=== PATIENT | male | born 1955 | race Caucasian/White ===

== ENCOUNTER 2017-11-16 05:04 | Day surgery (SDC) | payer OTHER ==
[2017-11-09 08:32] VITALS: Ht 172.7 cm; Wt 82.6 kg
--- NOTE | 2017-11-09 08:35 | PAT Medication Instructions ---
Service Date Nov 09, 2017. Current Home Medication List Calcium/Vitamin D (Os-Aime 500 Plus D), 1 TAB PO QDL Cyanocobalamin (Vitamin B-12), 1,000 MCG INJ WK Tamsulosin Hcl (Flomax), 0.4 MG PO HS Medication Instructions For Your Scheduled Surgery -Continue as directed: Cyanocobalamin (Vitamin B-12), 1,000 MCG INJ WK - Take the following medications as scheduled the night before surgery: Tamsulosin Hcl (Flomax), 0.4 MG PO HS Calcium/Vitamin D (Os-Aime 500 Plus D), 1 TAB PO QDL If you have any questions please call us at [phone] or [phone] or [phone]
--- NOTE | 2017-11-09 10:18 | DIAGNOSTIC IMAGING REPORT ---
CHEST 2 VIEWS ROUTINE HISTORY: Preop. COMPARISON: Outside hospital chest CT 10/19/2017. FINDINGS: Mild peripheral interstitial thickening. This remains unchanged. Eventration of the right hemidiaphragm. The heart is normal in size. No new focal lung consolidations. No pleural effusions. No pneumothorax. IMPRESSION: Peripheral interstitial thickening which is likely chronic. This is consistent with pulmonary fibrosis. No acute process within the chest. Electronically signed by: Julio Lawler M.D. 11/09/2017 10:16 AM Dictated Date/Time: 11/09/2017 10:12 AM
[2017-11-09 11:14] LABS: BASO % 0.3 %; BASO ABS # 0.01 K/uL (0-0.2); EOS % 0.7 %; EOS ABS # 0.02 K/uL (0-0.5); HEMATOCRIT 31.7 % (42-52); HEMOGLOBIN 10.5 g/dL (14.0-18.0); IG# 0.01 K/uL (0.00-0.02); LYMPH % 21.6 %; LYMPH ABS # 0.63 K/uL (1.2-3.4); MEAN CELL VOLUME 94.6 fL (80-100); MEAN CORPUSCULAR HEMOGLOBIN 31.3 pg (25-34); MEAN CORPUSCULAR HGB CONC 33.1 g/dl (32-36); MEAN PLATELET VOLUME 9.5 fL (7.4-10.4); MONO % 10.3 %; NEUT % 66.8 %; NEUT ABS # 1.94 K/uL (1.4-6.5); PLATELET COUNT 164 K/uL (130-400); RED CELL DISTRIBUTION WIDTH CV 14.6 % (11.5-14.5); RED CELL DISTRIBUTION WIDTH SD 50.3 fL (36.4-46.3); WHITE BLOOD COUNT 2.91 K/uL (4.8-10.8)
[2017-11-09 11:31] LABS: CALCIUM 8.5 mg/dl (8.5-10.1); CREATININE 0.79 mg/dl (0.60-1.40); POTASSIUM 4.5 mmol/L (3.5-5.1)
[~2017-11-16] VITALS: Ht 172.7 cm; Wt 82.6 kg
[~2017-11-16 05:04] MED LIST: CALC500C70 PO; CYAN10005 INJ; TAMS0.4C38 PO
[2017-11-16 05:45] VITALS: BP 101/48; PULSE 72; TEMP 36.7; O2SAT 98
[2017-11-16] MEDS ORDERED: LACTATED RINGER'S 1000ML 1,000 ML IV SCH (06:00)
[2017-11-16] MEDS ORDERED: CIPROFLOXACIN / D5W 400 MG IV SCH (06:00)
[2017-11-16] MEDS ORDERED: FENTANYL CITRATE INJ 50 MCG/1 ML 2 ML VIAL ONE (06:50)
[2017-11-16] MEDS ORDERED: MIDAZOLAM HCL 1 MG/ML 2ML VIAL ONE ×2 (06:50)
[2017-11-16] MEDS ORDERED: Cysto-Conray II 17.2% 250ML BOTTLE ONE (06:58)
--- NOTE | 2017-11-16 06:58 | History & Physical Bridge Note ---
H&P Re-Evaluation Bridge Note: I have examined the patient, reviewed the History & Physical and in the interval since the performance of the History & Physical I have noted the following changes of clinical significance: No changes noted
[2017-11-16] MEDS ORDERED: PROPOFOL IV EMULSION 10 MG/ML 20 ML VIAL IV ONE (07:41)
[2017-11-16] MEDS ORDERED: EpHEDrine SULFATE 50MG/5ML SYR ONE (07:42)
[2017-11-16] MEDS ORDERED: BELLADONNA/OPIUM SUPP 60 MG SUPP PR ONE ×2 (07:51→07:56)
[2017-11-16] MEDS ORDERED: ONDANSETRON INJ 2 MG/ML 2 ML VIAL IV PRN (08:00)
[2017-11-16] MEDS ORDERED: ATROPINE SULFATE 0.1 MG/ML 5ML SYR IV PRN (08:00)
[2017-11-16] MEDS ORDERED: FENTANYL CITRATE INJ 50 MCG/1 ML 2 ML VIAL IV PRN (08:00)
[2017-11-16] MEDS ORDERED: EpHEDrine SULFATE INJ 50 MG/ML AMP IV PRN (08:00)
--- NOTE | 2017-11-16 08:00 | [facility] Operative Report ---
Operative Report Operative Date Nov 16, 2017. Pre-Operative Diagnosis Bilateral Hydronephrosis Post-Operative Diagnosis Bilateral Hydronephrosis, Retroperitoneal Obstruction, Ureteral Stricture Disease. Procedure(s) Performed Cystoscopy, Optical Internal Urethotomy, Bilateral Retrograde Pyelography, Fulguration of Urethral Bleeders, Bilateral Ureteral Stent Insertion Surgeon Dr. Priyank Ellsworth Roller Operator Surgeon(s) None per surgeon Estimated Blood Loss 5ml Findings Urethral stricture disease in the proximal urethra, bilateral hydronephrosis with a transition point approximately 4 cm above the bladder assistant corporate controller with retroperitoneal scarring. Bilateral significant hydronephrosis. Specimens None per surgeon Drains Right-sided 6 Mexican 26 cm loop stent, left-sided 6 Mexican 24 cm loop stent Anesthesia Type General Complication(s) none Disposition no Recovery Room / PACU Indications Patient is a 62-year-old male with a complex medical history including colon cancer status post colectomy and radiation found to have bilateral hydronephrosis on screening CT scan for his disease. He is here today for decompression of his kidneys with stent placement. He notes chronic voiding symptoms which were unimproved by Flomax. Please see H&P for further details. Intravenous ciprofloxacin was provided for antibiotic coverage and SCDs used for DVT prophylaxis. He notes he is pending upcoming PET scan soon with his primary service. Description of Procedure Patient was properly identified and brought into the operative suite after identification for proper consent the chart. General anesthesia with laryngeal mask was initiated and patient was prepped and draped in the standard fashion for this procedure. Full timeout procedure was followed. Attempts at passing a 22 Mexican rigid cystoscope into the bladder met with resistance at the bulbar urethra due to circumferential stricture disease. Urethrotome was passed using a half-miller blade the stricture was incised at the 12 o'clock position. This allowed for passage of the 22 Mexican rigid cystoscope without resistance. Within the bladder radiation changes were appreciated. No abnormal mucosa or evidence of tumor was noted. No biopsies were felt to be necessary. Ureteral orifices were dressed using open-ended 5 Mexican Pollack catheter and retrograde pyelography was performed. This demonstrated a decompressed distal ureter on both sides with a transition point approximately 4 cm above the bladder consistent with the previous findings of obstruction at the prior surgery site on the patient's CT scan. Sensor tip wire was able to be advanced past this level on both sides followed by a 6 Mexican 26 cm loop stent on the right-hand side and a 6 Mexican 24 cm loop stent on the left-hand side with excellent coil within the renal pelvis and redundant loop present within the bladder. Hydronephrotic drip was appreciated on both sides. On removal of the cystoscope some bleeding from several urethral vessels were appreciated at the site of the ureterotomy. Pinpoint Bugbee cautery was used to ablate these vessels to avoid excess postoperative hematuria. Cystoscope was removed and bladder was left partially distended. 20 Mexican silicone catheter was placed with return of clear yellow urine and 10 cc of sterile water in the balloon. Catheter was placed to gravity drainage and anesthesia was reversed. Patient was transferred to the recovery room in stable condition. Follow-up instructions: Patient will be discharged home with a prescription for ciprofloxacin and Pyridium. Will arrange for outpatient trial of void. Follow- up appointment as scheduled. Patient is to contact our service should he note any fevers, chills, nausea, vomiting or other difficulties in the postoperative period. I attest to the content of the Intraoperative Record and any orders documented therein. Any exceptions are noted below.
[2017-11-16] MEDS ORDERED: CIPR-255 PO (08:14)
[2017-11-16] MEDS ORDERED: PHEN-775 PO (08:14)
[2017-11-16] MEDS ORDERED: OXYC-57 PO (08:14)
--- NOTE | 2017-11-16 08:17 | Discharge Instructions ---
Discharge Instructions Date of Service Nov 16, 2017. Admission Reason for Admission: Bilateral [facility] Discharge Discharge Diagnosis / Problem: Bilateral hydronephrosis, urethral stricture Discharge Goals Goal(s): Improve function, Improve disease control, Therapeutic intervention Activity Recommendations Activity Limitations: as noted below Lifting Limitations: no more than 25 pounds, gradually increase as tolerated Exercise/Sports Limitations: rest today, gradually increase as tolerated May Resume Sexual Activity: after follow-up appointment Shower/Bathe: tomorrow (no tub bath with sam in place) . Instructions / Follow-Up Instructions / Follow-Up Sam to gravity drainage, will remove MondayNov 24 in [facility] office at 10 AM. Other visit canceled. Current Hospital Diet Patient's current hospital diet: Discharge Diet Recommended Diet: Regular Diet (good fluid intake) Procedures Procedures Performed: Cystoscopy, Optical Internal Urethotomy, Bilateral Retrograde Pyelography, Fulguration of Urethral Bleeders, Bilateral Ureteral Stent Insertion Pending Studies Studies pending at discharge: no Medical Emergencies . Who to Call and When: Medical Emergencies: If at any time you feel your situation is an emergency, please call 911 immediately. . Non-Emergent Contact Non-Emergency issues call your: Urologist Call Non-Emergent contact if: you have a fever, temperature is above 101, your pain is not controlled, your pain is worsening, your pain is unusual for you, your pain is concerning you, you have any medication questions . . "Provider Documentation" section prepared by Priyank Ellsworth. . [place] Drug Monitoring Program Search Results: patient reviewed within database, no issues identified
[2017-11-16] MEDS ORDERED: OXYCODONE/ACETAMINOPHEN 5-325 TAB PO PRN ×2 (08:30)
[2017-11-16] MEDS ORDERED: PHENAZOPYRIDINE HCL 200 MG TAB PO PRN (08:30)
--- NOTE | 2017-11-16 08:33 | DIAGNOSTIC IMAGING REPORT ---
RETROGRADE INCLUDES KUB HISTORY: 62 years-old Male CYSTO/B/L STENTS cystourethrogram with bilateral stent placement. COMPARISON: CT chest 10/19/2017 TECHNIQUE: Multiple spot fluoroscopic images of the abdomen and pelvis were obtained utilizing 119 seconds fluoroscopy time. 7 spot fluoroscopic images were submitted. FINDINGS: First image demonstrates ureteroscope with contrast opacification of the right ureter which is mildly dilated. Subsequent images demonstrate guidewire within the right ureter with placement of a right ureteral stent which appears to be in satisfactory positioning. Subsequent images demonstrate left-sided ureteroscope with opacification of a dilated left ureter and dilated left renal collecting system with blunted calyces. Deployment of a left ureteral stent with proximal portion of the stent in satisfactory positioning. Distal portion of the left ureteral stent is not imaged. IVC filter incidentally noted. Hardware of the right hip is partially imaged. Degenerative changes are seen about the spine. IMPRESSION: Fluoroscopic assistance as above. Please see operative report for further details. The above report was generated using voice recognition software. It may contain grammatical, syntax or spelling errors. Electronically signed by: Harjeet Holcomb M.D. 11/16/2017 8:31 AM Dictated Date/Time: 11/16/2017 8:28 AM
--- NOTE | 2017-11-16 08:56 | Anesthesiology Progress Note ---
Anesthesia Post Op Note Date & Time Nov 16, 2017 at 08:56 Vital Signs Pain Intensity: 0 Vital Signs Past 12 Hours Date Time Temp Pulse Resp B/P (MAP) Pulse Ox O2 Delivery O2 Flow Rate FiO2 11/16/17 08:45 67 18 102/63 98 Room Air 11/16/17 08:40 36.2 71 17 107/65 97 Room Air 11/16/17 08:30 79 22 97/63 96 Room Air 11/16/17 08:20 87 18 107/65 97 Room Air 11/16/17 08:10 93 20 110/71 96 Room Air 11/16/17 08:04 36.0 89 12 116/70 95 Room Air 11/16/17 05:45 36.7 72 18 101/48 (65) 98 Room Air Notes Mental Status: alert / awake / arousable, participated in evaluation Pt Amnestic to Procedure: Yes Nausea / Vomiting: adequately controlled Pain: adequately controlled Airway Patency, RR, SpO2: stable & adequate BP & HR: stable & adequate Hydration State: stable & adequate Anesthetic Complications: no major complications apparent
[2017-11-16 09:00] VITALS: BP 104/61; PULSE 74; TEMP 36.6; O2SAT 97
[2017-11-16 09:30] VITALS: BP 105/58; PULSE 73; TEMP 36.6; O2SAT 97
== END 2017-11-16 10:26 | disposition home or self-care (01) ==
LOC: C.ACU 05:04
PROVIDERS: ATTEND Urology
DX: N13.1 Hydronephrosis with ureteral stricture, not elsewhere classified (principal); N13.8 Other obstructive and reflux uropathy; N32.89 Other specified disorders of bladder; N36.0 Urethral fistula; I73.9 Peripheral vascular disease, unspecified; Z85.038 Personal history of other malignant neoplasm of large intestine; Z90.89 Acquired absence of other organs; Z87.442 Personal history of urinary calculi; N40.1 Benign prostatic hyperplasia with lower urinary tract symptoms; Z83.3 Family history of diabetes mellitus; Z80.42 Family history of malignant neoplasm of prostate; Z80.1 Family history of malignant neoplasm of trachea, bronchus and lung